=== PATIENT | female | born 1980 | race Caucasian/White ===

== ENCOUNTER 2018-11-07 17:29 | Emergency (ER) | payer MEDICAID ==
[~2018-11-07] VITALS: Ht 157.5 cm; Wt 58.5 kg
[~2018-11-07 17:29] MED LIST: DSS100 PO; FERR325T22 PO; IBUP-2070 PO
[2018-11-07] MEDS ORDERED: ASPI81TA39 PO (17:45)
[2018-11-07] MEDS ORDERED: ASPIRIN 81 MG CHEWABLE TABLET PO ONE (18:00)
[2018-11-07 18:10] LABS: BASOPHILS % (AUTO) 0.7 % (0.0-2.0); EOSINOPHILS % (AUTO) 1.3 % (1.0-6.0); HEMATOCRIT 36.2 % (36-46); HEMOGLOBIN 12.4 g/dL (12.0-16.0); LYMPHOCYTES # (AUTO) 1.7 K/uL (1.0-4.8); LYMPHOCYTES % (AUTO) 31.9 % (22.0-44.0); MEAN CORPUSCULAR HEMOGLOBIN 31.2 pg (26.0-34.0); MEAN CORPUSCULAR HGB CONC 34.3 G/dL (31.0-37.0); MEAN CORPUSCULAR VOLUME 91 fL (80-100); MONOCYTES # (AUTO) 0.5 K/uL (0.1-1.0); MONOCYTES % (AUTO) 9.7 % (2.0-9.0); NEUTROPHILS # (AUTO) 2.9 K/uL (1.8-7.7); NEUTROPHILS % (AUTO) 56.4 % (40.0-70.0); PLATELET COUNT (AUTO) 219 K/uL (150-450); RED BLOOD CELL COUNT(AUTO) 3.98 MIL/uL (4.00-5.20); RED CELL DISTRIBUTION WIDTH 12.6 % (11.5-14.5)
[2018-11-07 18:24] LABS: ANION GAP 8 mmol/L (8-16); CALCIUM, TOTAL 9.5 mg/dL (8.8-10.5); CARBON DIOXIDE 29 mmol/L (22-29); CHLORIDE 101 mmol/L (98-107); CREATININE 0.73 mg/dL (0.60-1.30); GLOMERULAR FILTR. RATE CALC > 60 mL/min (>60); GLUCOSE,RANDOM 111 mg/dL (70-110); POTASSIUM 3.4 mmol/L (3.5-5.1); SODIUM SERUM 138 mmol/L (136-145); UREA NITROGEN, BLOOD 9 mg/dL (7-18)
[2018-11-07 18:37] LABS: APPEARANCE,URINE CLEAR (CLEAR); BILIRUBIN,URINE NEGATIVE (NEGATIVE); GLUCOSE, URINE (UA) NEGATIVE (NEGATIVE); KETONES,URINE NEGATIVE (NEGATIVE); LEUKOCYTE ESTERASE ,URINE TRACE (NEGATIVE); NITRATE,URINE NEGATIVE (NEGATIVE); OCCULT BLOOD,URINE TRACE (NEGATIVE); PROTEIN,URINE NEGATIVE (NEGATIVE); UROBILINOGEN,URINE 0.2 mg/dL (<=1.0)
[2018-11-07 18:48] LABS: ALANINE AMINOTRANSFERASE 20 U/L (12-78); ALBUMIN 4.4 g/dL (3.4-5.0); ALKALINE PHOSPHATASE 47 U/L (46-116); ASPARTATE AMINOTRANSFERASE 18 U/L (15-37); BILIRUBIN,TOTAL 0.8 mg/dL (0.1-1.0); CREATINE KINASE, TOTAL ONLY 101 U/L (26-192)
[2018-11-07 18:56] LABS: B-TYPE NATRIURETIC PEPTIDE 16 pg/mL (0-100)
[2018-11-07 19:00] LABS: BACTERIA,URINE None Seen /HPF (None Seen); RBC,URINE 0-2 /HPF (0-2); SQUAMOUS EPITHELIAL CELL,UR Rare /LPF (None Seen); WBC,URINE 0-2 /HPF (0-5)
[2018-11-07 21:06] LABS: THYROID STIMULATING HORMONE 1.69 uIU/mL (0.36-3.74)
[2018-11-07] MEDS ORDERED: POTASSIUM CHLORIDE 20 MEQ ER TABLET PO ONE (22:00)
[2018-11-07 22:03] VITALS: BP 126/68
== END 2018-11-07 22:19 | disposition home or self-care (01) ==
LOC: EMS 17:30
DX: R00.2 Palpitations (principal); F41.9 Anxiety disorder, unspecified; E87.6 Hypokalemia; R07.9 Chest pain, unspecified; I10 Essential (primary) hypertension; Z79.82 Long term (current) use of aspirin
CPT/HCPCS: 84443; 93005

== ENCOUNTER 2019-09-26 07:11 | Emergency (ER) | payer MEDICAID ==
[~2019-09-26] VITALS: Ht 165.1 cm; Wt 59.1 kg
[~2019-09-26 07:11] MED LIST changes: +ASPI81TA39 PO; -DSS100 PO; -FERR325T22 PO; -IBUP-2070 PO
[2019-09-26 08:18] VITALS: BP 105/67
== END 2019-09-26 08:29 | disposition home or self-care (01) ==
LOC: EMS 07:13
DX: J02.9 Acute pharyngitis, unspecified (principal); I10 Essential (primary) hypertension; Z79.82 Long term (current) use of aspirin

== ENCOUNTER 2019-10-01 08:44 | Emergency (ER) | payer MEDICAID ==
[~2019-10-01] VITALS: Ht 165.1 cm; Wt 59.1 kg
[2019-10-01 12:02] LABS: ANION GAP 9 mmol/L (8-16); CALCIUM, TOTAL 9.2 mg/dL (8.8-10.5); CARBON DIOXIDE 29 mmol/L (22-29); CHLORIDE 105 mmol/L (98-107); GLOMERULAR FILTR. RATE CALC > 60 mL/min (>60); GLUCOSE,RANDOM 96 mg/dL (70-110); POTASSIUM 4.1 mmol/L (3.5-5.1); SODIUM SERUM 143 mmol/L (136-145); UREA NITROGEN, BLOOD 7 mg/dL (7-18)
[2019-10-01 13:08] VITALS: BP 106/60
== END 2019-10-01 13:12 | disposition home or self-care (01) ==
LOC: EMS 08:45
DX: K12.0 Recurrent oral aphthae (principal); I10 Essential (primary) hypertension
CPT/HCPCS: 83735

== ENCOUNTER 2021-06-27 16:37 | Emergency (ER) | payer MEDICAID ==
[~2021-06-27] VITALS: Ht 157.5 cm; Wt 54.5 kg
[2021-06-27] MEDS: ACETAMINOPHEN 325 MG TABLET PO ONE (18:04)
[2021-06-27] MEDS: PERTUSS(ACELL),DIPH,TET VAC/PF 0.5 ML SYRINGE IM. ONE (18:05)
[2021-06-27 18:31] VITALS: BP 129/73
== END 2021-06-27 19:30 | disposition home or self-care (01) ==
LOC: EMS 16:40
DX: S01.81XA Laceration without foreign body of other part of head, initial encounter (principal); I10 Essential (primary) hypertension; Z79.82 Long term (current) use of aspirin; W22.8XXA Striking against or struck by other objects, initial encounter; Y93.89 Activity, other specified; Y92.89 Other specified places as the place of occurrence of the external cause; Y99.8 Other external cause status
CPT/HCPCS: 90471; 90715; 99283

== ENCOUNTER 2021-06-30 18:56 | Emergency (ER) | payer MEDICAID ==
[~2021-06-30] VITALS: Ht 162.6 cm; Wt 59.1 kg
[2021-06-30 22:31] LABS: BASOPHILS % (AUTO) 0.9 % (0.0-2.0); EOSINOPHILS % (AUTO) 2.9 % (1.0-6.0); HEMATOCRIT 37.6 % (36-46); HEMOGLOBIN 12.5 g/dL (12.0-16.0); LYMPHOCYTES # (AUTO) 1.8 K/uL (1.0-4.8); LYMPHOCYTES % (AUTO) 29.2 % (22.0-44.0); MEAN CORPUSCULAR HEMOGLOBIN 31.5 pg (26.0-34.0); MEAN CORPUSCULAR HGB CONC 33.4 G/dL (31.0-37.0); MEAN CORPUSCULAR VOLUME 95 fL (80-100); MONOCYTES # (AUTO) 0.7 K/uL (0.1-1.0); MONOCYTES % (AUTO) 10.9 % (2.0-9.0); NEUTROPHILS # (AUTO) 3.5 K/uL (1.8-7.7); NEUTROPHILS % (AUTO) 56.1 % (40.0-70.0); PLATELET COUNT (AUTO) 222 K/uL (150-450); RED BLOOD CELL COUNT(AUTO) 3.98 MIL/uL (4.00-5.20)
[2021-06-30 22:43] LABS: ANION GAP 10 mmol/L (8-16); CALCIUM, TOTAL 8.8 mg/dL (8.8-10.5); CARBON DIOXIDE 28 mmol/L (22-29); CHLORIDE 104 mmol/L (98-107); GLOMERULAR FILTR. RATE CALC > 60 mL/min (>60); GLUCOSE,RANDOM 113 mg/dL (70-110); POTASSIUM 4.2 mmol/L (3.5-5.1); SODIUM SERUM 142 mmol/L (136-145); UREA NITROGEN, BLOOD 10 mg/dL (7-18)
[2021-06-30] MEDS ORDERED: MECLIZINE HCL 25 MG TABLET PO ONE (22:45)
[2021-06-30] MEDS ORDERED: ACETAMINOPHEN 500 MG TABLET PO ONE (22:45)
[2021-06-30 22:48] LABS: ALANINE AMINOTRANSFERASE 24 U/L (12-78); ALBUMIN 4.1 g/dL (3.4-5.0); ALKALINE PHOSPHATASE 47 U/L (46-116); ASPARTATE AMINOTRANSFERASE 15 U/L (15-37); BILIRUBIN,TOTAL 0.4 mg/dL (0.1-1.0); TOTAL PROTEIN, SERUM 8.1 g/dL (6.4-8.2)
[2021-06-30 23:53] LABS: AMPHET/METH SCREEN,URINE NEGATIVE (NEGATIVE); BARBITURATE SCREEN, URINE NEGATIVE (NEGATIVE); BENZODIAZEPINES SCREEN,URINE NEGATIVE (NEGATIVE); CANNABINOID SCREEN,URINE NEGATIVE (NEGATIVE); COCAINE SCREEN,URINE NEGATIVE (NEGATIVE); METHADONE SCREEN, URINE NEGATIVE (NEGATIVE); OPIATE SCREEN,URINE NEGATIVE (NEGATIVE); PHENCYCLIDINE SCREEN,URINE NEGATIVE (NEGATIVE)
[2021-07-01 00:30] VITALS: BP 116/66
== END 2021-07-01 01:03 | disposition home or self-care (01) ==
LOC: EDUNIT# 18:56 → EDBD 18:57 → EMS 18:57
DX: R42 Dizziness and giddiness (principal); F07.81 Postconcussional syndrome; I10 Essential (primary) hypertension; Z79.82 Long term (current) use of aspirin
CPT/HCPCS: 36415; 80053; 80307; 84703; 85025; 93005; 99284; G0480

== ENCOUNTER 2021-09-08 08:49 | Emergency (ER) | payer MEDICAID ==
[~2021-09-08] VITALS: Ht 157.5 cm; Wt 55.0 kg
[2021-09-08 09:26] VITALS: BP 131/81
== END 2021-09-08 12:51 | disposition home or self-care (01) ==
LOC: EMS 08:49
DX: K02.9 Dental caries, unspecified (principal); R22.0 Localized swelling, mass and lump, head; I10 Essential (primary) hypertension; Z79.899 Other long term (current) drug therapy
CPT/HCPCS: 99283; Z7502

== ENCOUNTER 2022-11-20 07:54 | Emergency (ER) | payer MEDICAID ==
[~2022-11-20] VITALS: Ht 157.5 cm; Wt 127.0 kg
[2022-11-20 08:24] VITALS: BP 120/52
[2022-11-20 09:44] LABS: RAPID GROUP A STREP NEGATIVE (NEGATIVE)
[2022-11-20 09:49] LABS: INFLUENZA TYPE A NEGATIVE FOR TYPE A (NEGATIVE); INFLUENZA TYPE B NEGATIVE FOR TYPE B (NEGATIVE)
[2022-11-20 10:45] LABS: APPEARANCE,URINE CLEAR (CLEAR); BILIRUBIN,URINE NEGATIVE (NEGATIVE); GLUCOSE, URINE (UA) NEGATIVE (NEGATIVE); KETONES,URINE NEGATIVE (NEGATIVE); LEUKOCYTE ESTERASE ,URINE MODERATE (NEGATIVE); NITRATE,URINE NEGATIVE (NEGATIVE); OCCULT BLOOD,URINE TRACE (NEGATIVE); PROTEIN,URINE NEGATIVE (NEGATIVE); SPECIFIC GRAVITIY, URINE 1.008 (1.003-1.030); UROBILINOGEN,URINE <=1.0 mg/dL (<=1.0)
[2022-11-20 10:59] LABS: BACTERIA,URINE None Seen /HPF (None Seen); RBC,URINE 0-2 /HPF (0-2); SQUAMOUS EPITHELIAL CELL,UR Few /LPF (None Seen); WBC,URINE 0-2 /HPF (0-5)
[2022-11-20] MEDS ORDERED: AMOX500C2 PO (11:37)
== END 2022-11-20 12:17 | disposition home or self-care (01) ==
LOC: EMS 07:54
DX: J06.9 Acute upper respiratory infection, unspecified (principal); I10 Essential (primary) hypertension
CPT/HCPCS: 81001; 87430; 87804; 99283

== ENCOUNTER 2023-02-13 07:57 | Emergency (ER) | payer MEDICAID ==
[~2023-02-13] VITALS: Ht 157.5 cm; Wt 54.5 kg
[~2023-02-13 07:57] MED LIST changes: +AMOX500C2 PO
[2023-02-13 07:59] VITALS: BP 115/77
[2023-02-13] MEDS ORDERED: AMOX1TAB16 PO (08:55)
[2023-02-13] MEDS ORDERED: IBUPROFEN 600 MG TABLET PO ONE (09:00)
[2023-02-13] MEDS ORDERED: ACETAMINOPHEN 325 MG TABLET PO ONE (09:00)
== END 2023-02-13 09:07 | disposition home or self-care (01) ==
LOC: EMS 07:59
DX: K02.9 Dental caries, unspecified (principal); G50.1 Atypical facial pain; I10 Essential (primary) hypertension
CPT/HCPCS: 99283

== ENCOUNTER 2023-08-25 05:50 | Emergency (ER) | payer MEDICAID ==
[~2023-08-25] VITALS: Ht 160 cm; Wt 57.3 kg
[~2023-08-25 05:50] MED LIST changes: +AMOX1TAB16 PO; -AMOX500C2 PO
[2023-08-25] MEDS ORDERED: AMOX1TAB15 PO (06:15)
[2023-08-25 06:45] VITALS: BP 128/78; PULSE 75; RESP 14; TEMP 98.4
== END 2023-08-25 06:54 | disposition home or self-care (01) ==
LOC: EMS 05:51
DX: K05.20 Aggressive periodontitis, unspecified (principal); I10 Essential (primary) hypertension
CPT/HCPCS: 99283

== ENCOUNTER 2023-10-06 13:18 | Emergency (ER) | payer MEDICAID ==
[~2023-10-06] VITALS: Ht 160 cm; Wt 61.4 kg
[~2023-10-06 13:18] MED LIST changes: +AMOX1TAB15 PO; -AMOX1TAB16 PO; -ASPI81TA39 PO
[2023-10-06 13:23] VITALS: TEMP 98.5
[2023-10-06] MEDS ORDERED: IBUPROFEN 800 MG TABLET PO ONE (14:00)
[2023-10-06] MEDS ORDERED: AMOX1TAB16 PO (14:49)
[2023-10-06] MEDS ORDERED: IBUP-1556 PO (14:51)
[2023-10-06] MEDS ORDERED: AMOX TR/POT CLAV 875 MG/125 MG TABLET PO ONE (15:00)
[2023-10-06 15:08] VITALS: BP 125/76; PULSE 90; RESP 18
== END 2023-10-06 15:10 | disposition home or self-care (01) ==
LOC: EMS 13:36
DX: K02.9 Dental caries, unspecified (principal); I10 Essential (primary) hypertension
CPT/HCPCS: 99283

== ENCOUNTER 2023-11-16 08:57 | Emergency (ER) | payer MEDICAID ==
[~2023-11-16] VITALS: Ht 160 cm; Wt 56.8 kg
[~2023-11-16 08:57] MED LIST changes: -AMOX1TAB15 PO; +AMOX1TAB16 PO; +IBUP-1556 PO
[2023-11-16 09:18] VITALS: BP 124/73; PULSE 66; RESP 18; TEMP 98.3
[2023-11-16] MEDS ORDERED: IBUP-1554 PO (10:40)
[2023-11-16] MEDS ORDERED: ACET-2080 PO (10:40)
[2023-11-16] MEDS ORDERED: CEPH-558 PO (10:40)
[2023-11-16] MEDS: ACETAMINOPHEN/CODEINE 300-30 MG TABLET PO ONE (10:47)
[2023-11-16] MEDS: CEPHALEXIN MONOHYDRATE 500 MG CAPSULE PO ONE (10:47)
[2023-11-16] MEDS: IBUPROFEN 600 MG TABLET PO ONE (10:47)
== END 2023-11-16 10:56 | disposition home or self-care (01) ==
LOC: EMS 08:57
DX: H00.015 Hordeolum externum left lower eyelid (principal)
CPT/HCPCS: 99284; Z7502; Z7610

== ENCOUNTER 2024-09-08 19:54 | Emergency (ER) | payer MEDICAID ==
[~2024-09-08] VITALS: Ht 157.5 cm; Wt 56.8 kg
[~2024-09-08 19:54] MED LIST changes: +ACET-2080 PO; +AMOX-457 PO; -AMOX1TAB16 PO; +CEPH-558 PO; +IBUP-1554 PO
[2024-09-08 20:40] VITALS: BP 106/54; PULSE 94; RESP 17; TEMP 99.9; O2SAT 95
[2024-09-08 22:45] LABS: BASOPHILS % (AUTO) 0.6 % (0.0-2.0); EOSINOPHILS % (AUTO) 0.1 % (1.0-6.0); HEMATOCRIT 37.1 % (36-46); HEMOGLOBIN 12.4 g/dL (12.0-16.0); LYMPHOCYTES # (AUTO) 0.8 K/uL (1.0-4.8); LYMPHOCYTES % (AUTO) 16.4 % (22.0-44.0); MEAN CORPUSCULAR HEMOGLOBIN 31.3 pg (26.0-34.0); MEAN CORPUSCULAR HGB CONC 33.4 G/dL (31.0-37.0); MEAN CORPUSCULAR VOLUME 94 fL (80-100); MONOCYTES # (AUTO) 0.6 K/uL (0.1-1.0); MONOCYTES % (AUTO) 12.9 % (2.0-9.0); NEUTROPHILS # (AUTO) 3.5 K/uL (1.8-7.7); PLATELET COUNT (AUTO) 205 K/uL (150-450); RED BLOOD CELL COUNT(AUTO) 3.96 MIL/uL (4.00-5.20); RED CELL DISTRIBUTION WIDTH 13.3 % (11.5-14.5); WHITE BLOOD COUNT (AUTO) 4.9 K/uL (4.5-11.0)
[2024-09-08] MEDS ORDERED: AMOX250C4 PO (22:48)
[2024-09-08 22:55] LABS: ANION GAP 9 mmol/L (8-16); CALCIUM, TOTAL 8.5 mg/dL (8.8-10.5); CARBON DIOXIDE 28 mmol/L (22-29); CHLORIDE 100 mmol/L (98-107); CREATININE 0.84 mg/dL (0.60-1.30); GLOMERULAR FILTR. RATE CALC > 60 mL/min (>60); GLUCOSE,RANDOM 107 mg/dL (70-110); POTASSIUM 4.1 mmol/L (3.5-5.1); SODIUM SERUM 137 mmol/L (136-145); UREA NITROGEN, BLOOD 9 mg/dL (7-18)
[2024-09-08] MEDS: AMOXICILLIN TRIHYDRATE 250 MG CAPSULE PO ONE (22:56)
[2024-09-08 23:04] LABS: LACTIC ACID 0.5 mmol/L (0.4-2.0)
== END 2024-09-08 23:11 | disposition home or self-care (01) ==
LOC: EMS 19:54
DX: K02.9 Dental caries, unspecified (principal); K04.7 Periapical abscess without sinus
CPT/HCPCS: 80048; 83605; 85025; 99283

== ENCOUNTER 2025-08-12 11:31 | Emergency (ER) | payer MEDICAID ==
[~2025-08-12] VITALS: Ht 157.5 cm; Wt 59.0 kg
[~2025-08-12 11:31] MED LIST changes: +AMOX250C4 PO
[2025-08-12 11:37] VITALS: BP 104/48; PULSE 62; RESP 18; TEMP 98.2; O2SAT 100
[2025-08-12] MEDS: PROPARACAINE HCL 0.5% 15 ML OPHTHALMIC SOLUTION OS ONE (13:34)
[2025-08-12] MEDS: ACETAMINOPHEN 500 MG TABLET PO ONE (13:34)
[2025-08-12] MEDS: FLUORESCEIN SODIUM 1 MG STRIP OU ONE (13:50)
[2025-08-12] MEDS ORDERED: CEPH-558 PO (13:55)
[2025-08-12] MEDS ORDERED: ACET-2080 PO (13:55)
[2025-08-12] MEDS ORDERED: SULF15DR26 OS (13:55)
== END 2025-08-12 14:26 | disposition home or self-care (01) ==
LOC: EMS 11:31
DX: H57.12 Ocular pain, left eye (principal); H53.2 Diplopia; H01.006 Unspecified blepharitis left eye, unspecified eyelid; Z79.899 Other long term (current) drug therapy
CPT/HCPCS: 99283